=== PATIENT | male | born 1985 | race Caucasian/White ===

== ENCOUNTER 2019-02-14 15:45 | Emergency (ER) | payer BC ==
[~2019-02-14] VITALS: Ht 175.3 cm; Wt 92.5 kg
[2019-02-14] MEDS ORDERED: PHENAZOPYRIDINE 100 MG TABLET ONE (16:36)
[2019-02-14] MEDS ORDERED: TOLTERODINE LA 4MG CAP.ER.24H PO ONE (16:47)
[2019-02-14] MEDS ORDERED: PRAZ1CAP PO (16:59)
[2019-02-14] MEDS ORDERED: PHENAZOPYRIDINE 100 MG TABLET PO ONE (17:00)
[2019-02-14] MEDS ORDERED: PHENAZOPYRIDINE 200 MG TABLET PO ONE (17:00)
--- NOTE | 2019-02-14 17:00 | NUR ---
PT REQUESTED TRAMADOL FOR URETHRAL PAIN. ERP NOTIFIED.
[2019-02-14 17:20] VITALS: BP 118/82
--- NOTE | 2019-02-14 17:30 | NUR ---
PT VERBALIZED SOME RELIEF OF URETHRAL PAIN AFTER TRAMADOL.
--- NOTE | 2019-02-14 17:31 | NUR ---
1000ML DRAINED OUT OF ZAMARRIPA BAG. ZAMARRIPA CHANGED TO LEG BAG FOR DISCHARGE. D/C INSTRUCTIONS, MEDS & F/U APPT RV'WD WITH PT, HE VERBALIZES UNDERSTANDING. RX GIVEN X1. PT ASSISTED OUT OF ED VIA WC WITH SARAH IN LAW.
[2019-02-14 18:56] LABS: MICROSCOPIC AUTO
== END 2019-02-14 17:57 | disposition home or self-care (01) ==
LOC: ED 17:29
DX: R33.8 Other retention of urine (principal)
CPT/HCPCS: 51702; 81001; 99283; 99284